=== PATIENT | female | born 2000 | race Two or more races ===

== ENCOUNTER 2021-03-16 15:31 | Outpatient (CLI) | payer OTHER | END 2021-03-16 15:32 | disposition home or self-care (01) | LOC: PPH VACUNA 15:31 | DX: Z23 Encounter for immunization (principal) ==

== ENCOUNTER 2021-04-15 08:00 | Outpatient (CLI) | payer OTHER | END 2021-04-15 08:30 | disposition home or self-care (01) | LOC: PPH VACUNA 08:00 | DX: Z23 Encounter for immunization (principal) ==